=== PATIENT | male | born 1965 | race Caucasian/White ===

== ENCOUNTER 2021-05-18 12:21 | Emergency (ER) | payer OTHER ==
[2021-05-18 13:13] LABS: BASOPHIL 0.3 % (0-2); EOSINOPHIL 0 % (0-5); HCT 46.4 % (42.0-52.0); HGB 15.3 g/dl (13.2-18.0); LYMPHOCYTE 17.9 % (15-48); MCH 28.2 pg (25.0-31.0); MCV 85.5 fL (78.0-100.0); MONOCYTE 8.8 % (0-12); MPV 9.8 fL (6.0-9.5); NEUTROPHIL 72.7 % (41-80); NRBC 0; PLT 240 K/uL (150-400); RBC 5.43 M/uL (4.70-6.00); RDW 12.6 % (11.5-14.0); WBC 7.3 K/uL (4.0-10.5)
[2021-05-18 13:34] LABS: BUN/CREAT RATIO (CALC) 23.9 RATIO; CREATININE 0.71 mg/dL (0.67-1.17); POTASSIUM 4.2 mmol/L (3.5-5.1)
== END 2021-05-18 16:03 | disposition home or self-care (01) ==
LOC: FER 12:21
PROVIDERS: Emergency Medicine
DX: U07.1 COVID-19 (principal); I10 Essential (primary) hypertension; E11.9 Type 2 diabetes mellitus without complications; Z23 Encounter for immunization
CPT/HCPCS: 36415; 71045; 80048; 84484; 85025; 93005; M0245; Q0245

== ENCOUNTER 2021-05-24 11:55 | Emergency (ER) | payer OTHER ==
[2021-05-24 12:48] LABS: BASOPHIL 0.3 % (0-2); HCT 47.2 % (42.0-52.0); HGB 15.2 g/dl (13.2-18.0); LYMPHOCYTE 13.7 % (15-48); MCH 27.7 pg (25.0-31.0); MCHC 32.2 g/dL (32.0-36.0); MCV 86.1 fL (78.0-100.0); MONOCYTE 8.2 % (0-12); MPV 10.3 fL (6.0-9.5); NEUTROPHIL 76.5 % (41-80); NRBC 0; PLT 436 K/uL (150-400); RBC 5.48 M/uL (4.70-6.00); RDW 12.3 % (11.5-14.0); WBC 11.8 K/uL (4.0-10.5)
[2021-05-24 12:59] LABS: ALBUMIN 2.3 g/dL (3.4-5.0); BILIRUBIN - TOTAL 0.8 mg/dL (0.2-1.0); CREATININE 0.7 mg/dL (0.67-1.17); GLOBULIN (CALCULATION) 5.6 g/dL; POTASSIUM 4.3 mmol/L (3.5-5.1); TOTAL PROTEIN 7.9 g/dL (6.4-8.2)
[2021-05-24 14:18] LABS: BILIRUBIN NEGATIVE (NEGATIVE); BLOOD 2+ Ery/uL (NEGATIVE); CLARITY CLEAR (CLEAR); COLOR YELLOW (YELLOW); GLUCOSE (U) 3+ mg/dL (NORMAL); LEUKOCYTES NEGATIVE Leu/uL (NEGATIVE); NITRITE NEGATIVE (NEGATIVE); PROTEIN 2+ mg/dL (NEGATIVE); UROBILINOGEN 0.2 mg/dL (0.2-1.0)
[2021-05-24 14:46] LABS: BACTERIA TRACE
[2021-05-24] MEDS ORDERED: PREDNISONE 20MG20 MG PO (15:41)
[2021-05-24] MEDS ORDERED: AZITHROMYCIN250 MG PO (15:41)
[2021-05-24] MEDS ORDERED: ZOFRAN4 M1 PO (15:41)
== END 2021-05-24 16:06 | disposition home or self-care (01) ==
LOC: FER 11:55
PROVIDERS: Nurse Practitioner Family
DX: U07.1 COVID-19 (principal); J12.82 Pneumonia due to coronavirus disease 2019; E11.65 Type 2 diabetes mellitus with hyperglycemia; I10 Essential (primary) hypertension
CPT/HCPCS: 36415; 71046; 80053; 81001; 82009; 84484; 85025; 93005; J2405; J2550; J7030